=== PATIENT | female | born 1965 | race African-American/Black ===

== ENCOUNTER 2017-02-19 15:43 | Emergency (ER) | payer OTHER, BC ==
--- NOTE | 2017-02-19 16:01 | PHYS DOC ---
Adult General [facility] HPI Patient is a 51-year-old female presenting to the emergency department for evaluation of right ankle and foot pain along with left knee abrasion. Patient is from dialysis traveling towards [place] and she is visiting family here. While she was packing this morning and dialysis she stepped off a curb and had an inversion ankle injury and now has pain on her lateral malleolus in the bottom of her foot. She says she fell down and landed on her left knee but her left knee is not bothering her so much rather it is her right foot and ankle as it hurts to walk on. Her tetanus status is not up-to-date so it was updated here. She denies any head neck chest abdomen back or other extremity trauma or pain. Review of Systems Review of Systems Constitutional: Denies fever or chills [] Respiratory: Denies cough or shortness of breath [] Cardiovascular: No additional information not addressed in HPI [] GI: Denies abdominal pain, nausea, vomiting, bloody stools or diarrhea [] : Denies dysuria or hematuria [] Musculoskeletal: Denies back pain. + R ankle and foot joint pain [] Integument: + abrasion Neurologic: Denies headache, focal weakness or sensory changes [] Physical Exam Physical Exam Constitutional: Well developed, well nourished, no acute distress, non-toxic appearance. [] Neck: Normal range of motion, no tenderness, supple, no stridor. [] Cardiovascular:Heart rate regular rhythm, no murmur [] Lungs & Thorax: Bilateral breath sounds clear to auscultation [] Abdomen: Bowel sounds normal, soft, no tenderness, no masses, no pulsatile masses. [] Skin: Left anterior knee with abrasion and no obvious open laceration. Back: No tenderness, no CVA tenderness. [] Extremities: Right anterior lateral malleolus with slight swelling and pain to palpation. Bottom of patient's foot over her plantar fascia his painful to palpation. Neurologic: Alert and oriented X 3, normal motor function, normal sensory function, no focal deficits noted. [] EKG EKG [] Radiology/Procedures Radiology/Procedures [] Course & Med Decision Making Course & Med Decision Making X-rays negative and wound cleansed. She is neurovascularly intact so likely sprain. Will recommend rice NSAIDs PCP follow-up if not improved in one week and told to come back to the ER with any new worsening symptoms. Dragon Disclaimer Dragon Disclaimer This chart was dictated in whole or in part using Voice Recognition software in a busy, high-work load, and often noisy Emergency Department environment. It may contain unintended and wholly unrecognized errors or omissions. Departure Departure: Impression: Primary Impression: Right ankle sprain Additional Impressions: Right foot sprain Abrasion of left knee Disposition: HOME, SELF-CARE Condition: GOOD Referrals: NON,STAFF (PCP) Patient Instructions: Ankle Sprain Additional Instructions: TAKE 400MG OF IBUPROFEN, REST YOUR ANKLE, PUT ICE ON IT, ELEVATE IT. IF STILL HAVING PAIN IN 1 WEEK, FOLLOW WITH YOUR PRIMARY CARE DOCTOR. THANK YOU! Scripts Hydrocodone Bit/Acetaminophen (NORCO 5-325 TABLET) 1 Each Tablet 1 TAB PO PRN Q6HRS Y for PAIN, #14 TAB 0 Refills Prov: BAMBI MIKE DO 02/19/17 Problem Qualifiers Primary Impression: Right ankle sprain Encounter type: initial encounter Involved ligament of ankle: unspecified ligament Qualified Codes: S93.401A - Sprain of unspecified ligament of right ankle, initial encounter BAMBI MIKE DO Feb 19, 2017 16:01
[2017-02-19] MEDS ORDERED: DIPHTH,PERTUSS(ACELL),TET TOX 0.5 ML DISP.SYRIN. VAX IM ONE (16:30)
[2017-02-19] MEDS ORDERED: HYDR-971 PO (16:31)
--- NOTE | 2017-02-19 16:38 | RAD ---
Indication pain. 2 AP views and a lateral view of the right ankle were obtained. No bony abnormality is seen on the views provided
--- NOTE | 2017-02-19 16:43 | RAD ---
Indication pain and injury. AP oblique and lateral views of the right foot were obtained. No acute or significant bony finding is seen
[2017-02-19] MEDS ORDERED: HYDROcodone/APAP 5/325MG 1 TAB TABLET PO ONE (16:50)
[2017-02-19 17:15] VITALS: BP 114/78
== END 2017-02-19 17:15 | disposition home or self-care (01) ==
LOC: ER 15:43
DX: S93.401A Sprain of unspecified ligament of right ankle, initial encounter (principal); S93.601A Unspecified sprain of right foot, initial encounter; S80.212A Abrasion, left knee, initial encounter; W22.8XXA Striking against or struck by other objects, initial encounter; W19.XXXA Unspecified fall, initial encounter; Y93.89 Activity, other specified; Y99.8 Other external cause status; Y92.89 Other specified places as the place of occurrence of the external cause
CPT/HCPCS: 73610; 73630; 90471; 90715; 99284-25